=== PATIENT | female | born 1980 | race Caucasian/White ===

== ENCOUNTER 2016-12-05 09:09 | Day surgery (SDC) | payer BC ==
[~2016-12-05] VITALS: Ht 170.2 cm; Wt 85.3 kg
[~2016-12-05 09:09] MED LIST: CLARITIN D TAB1 TAB PO; MACROBID100 M1 PO; NO HOME MEDICATIONS; NUVARING1 ICR VG; PHENAZOPYRIDIN200 MG PO; PRENATAL1 TA1 PO; SULFAMETH/TRIME1 TA1 PO; ZOFRAN ODT4 MG PO
[2016-12-05] MEDS ORDERED: PRILOTC PO (09:49)
[2016-12-05 10:11] VITALS: BP 132/96; PULSE 88; TEMP 98.3
[2016-12-05 11:00] VITALS: BP 137/94; PULSE 97; TEMP 97.1
[2016-12-05 11:15] VITALS: BP 125/89; PULSE 104
[2016-12-05 11:30] VITALS: BP 129/95; PULSE 90
[2016-12-05 11:45] VITALS: BP 126/95; PULSE 93
[2016-12-05 12:32] VITALS: BP 124/79; PULSE 90
== END 2016-12-05 12:05 | disposition home or self-care (01) ==
LOC: SDCO 09:09
DX: D50.9 Iron deficiency anemia, unspecified (principal); K21.9 Gastro-esophageal reflux disease without esophagitis; K57.30 Diverticulosis of large intestine without perforation or abscess without bleeding; I10 Essential (primary) hypertension; G43.909 Migraine, unspecified, not intractable, without status migrainosus; M08.00 Unspecified juvenile rheumatoid arthritis of unspecified site; Z87.891 Personal history of nicotine dependence
CPT/HCPCS: J2250; J3010; J7030

== ENCOUNTER → 2018-04-20 | Outpatient (CLI) | payer BC ==
[~2018-04-20] MED LIST changes: +PRILOTC PO
== END ==
LOC: COL.RAD 10:00
DX: K44.9 Diaphragmatic hernia without obstruction or gangrene (principal); R14.0 Abdominal distension (gaseous)

== ENCOUNTER → 2018-05-10 | Outpatient (CLI) | payer BC ==
[~2018-05-10] VITALS: Ht 170.2 cm; Wt 105.7 kg
[~2018-05-10] MED LIST changes: +B-121000 MCG PO; +FOLIC ACID 11 MG/TA1 PO; +PRIL40 PO; -PRILOTC PO; +SLOW FE142 MG PO; +VITAMIN C500 MG PO
[2018-05-10 15:59] VITALS: BP 120/90; PULSE 76
== END ==
LOC: LIGHT 13:08
DX: Z98.84 Bariatric surgery status (principal); K21.9 Gastro-esophageal reflux disease without esophagitis; Z68.36 Body mass index [BMI] 36.0-36.9, adult; Z71.3 Dietary counseling and surveillance
CPT/HCPCS: G0463

== ENCOUNTER → 2018-06-01 | Outpatient (CLI) | payer BC | LOC: LIGHT 15:00 | DX: Z98.84 Bariatric surgery status (principal); K21.9 Gastro-esophageal reflux disease without esophagitis; Z68.36 Body mass index [BMI] 36.0-36.9, adult; Z71.3 Dietary counseling and surveillance ==

== ENCOUNTER → 2018-06-07 | Outpatient (CLI) | payer BC ==
[~2018-06-07] VITALS: Ht 170.2 cm; Wt 106.6 kg
[2018-06-07 15:20] VITALS: BP 122/80; PULSE 88
== END ==
LOC: LIGHT 14:50
DX: Z98.84 Bariatric surgery status (principal); K21.9 Gastro-esophageal reflux disease without esophagitis
CPT/HCPCS: G0463

== ENCOUNTER → 2018-08-02 | Outpatient (CLI) | payer BC ==
[~2018-08-02] VITALS: Ht 170.2 cm; Wt 103.4 kg
[~2018-08-02] MED LIST changes: +ADIPEX-P37.5 MG PO
[2018-08-02 14:46] VITALS: BP 128/84; PULSE 88
== END ==
LOC: LIGHT 11:13
DX: Z98.84 Bariatric surgery status (principal); K21.9 Gastro-esophageal reflux disease without esophagitis
CPT/HCPCS: G0463

== ENCOUNTER → 2018-12-27 | Outpatient (CLI) | payer BC | LOC: MC.RAD 10:24 | DX: Z12.31 Encounter for screening mammogram for malignant neoplasm of breast (principal) ==

== ENCOUNTER → 2019-09-26 | Outpatient (CLI) | payer BC ==
[~2019-09-26] MED LIST changes: +MIRENA52 MG IY
[2019-09-26 16:00] VITALS: BP 126/90; PULSE 80
== END ==
LOC: LIGHT 10:46
DX: E66.8 Other obesity (principal); Z98.84 Bariatric surgery status; Z68.39 Body mass index [BMI] 39.0-39.9, adult; K21.9 Gastro-esophageal reflux disease without esophagitis
CPT/HCPCS: G0463

== ENCOUNTER → 2019-10-18 | Outpatient (CLI) | payer BC | LOC: COL.RAD 08:00 | DX: Z46.51 Encounter for fitting and adjustment of gastric lap band (principal) | CPT/HCPCS: Q9967 ==

== ENCOUNTER → 2019-10-24 | Outpatient (CLI) | payer BC ==
[~2019-10-24] VITALS: Ht 170.2 cm; Wt 114.5 kg
[2019-10-24 14:05] VITALS: BP 156/80; PULSE 72
== END ==
LOC: LIGHT 11:34
DX: E66.8 Other obesity (principal); Z68.39 Body mass index [BMI] 39.0-39.9, adult; Z98.84 Bariatric surgery status
CPT/HCPCS: G0463

== ENCOUNTER → 2019-12-19 | Outpatient (CLI) | payer BC ==
[~2019-12-19] VITALS: Ht 170.2 cm; Wt 113.9 kg
[~2019-12-19] MED LIST changes: +INDERAL 10MG10 MG PO; +MOBIC 7.5MG7.5 MG PO
[2019-12-19 16:31] VITALS: BP 120/88; PULSE 72
== END ==
LOC: LIGHT 14:12
DX: E66.8 Other obesity (principal); Z68.39 Body mass index [BMI] 39.0-39.9, adult; Z98.84 Bariatric surgery status; K21.9 Gastro-esophageal reflux disease without esophagitis
CPT/HCPCS: G0463

== ENCOUNTER → 2023-02-04 | Outpatient (CLI) | payer BC ==
[~2023-02-04] MED LIST changes: +CARAFATE 1GM1 G PO; +IMITREX100 MG PO; +INDERAL80 MG PO; +NORCO 325 MG-51 TAB PO
== END ==
LOC: CANSCHCLI → MC.RAD 14:40
DX: Z12.31 Encounter for screening mammogram for malignant neoplasm of breast (principal)